=== PATIENT | female | born 1950 | race Two or more races ===

== ENCOUNTER 2022-06-02 05:27 | Emergency (ER) | payer OTHER ==
[~2022-06-02] VITALS: Ht 157.5 cm; Wt 63.5 kg
[2022-06-02] MEDS ORDERED: VASOTEC20 M1 PO (05:30)
[2022-06-02] MEDS ORDERED: POTASSIUM99 M3 PO (05:31)
== END 2022-06-02 11:51 | disposition home or self-care (01) ==
LOC: ER 05:27
DX: K29.70 Gastritis, unspecified, without bleeding (principal)